=== PATIENT | female | born 1945 ===

== ENCOUNTER 2017-03-15 14:38 | Observation (INO) | payer MEDICARE, MEDICAID ==
[2017-03-15 15:22] LABS: BASO # 0.1 K/uL (0.0-0.2); BASO % 0.6 % (0.0-2.0); EOS # 0.1 K/uL (0.0-0.7); EOS % 1.1 % (0.0-4.0); HEMATOCRIT 43.6 % (34.0-47.0); LYMPH # 3.2 K/uL (1.0-4.3); LYMPH % 23.7 % (20.0-40.0); MEAN CELL VOLUME 77.6 fl (81.0-99.0); MEAN CORPUSCULAR HEMOGLOBIN 25.3 pg (27.0-31.0); MEAN CORPUSCULAR HGB CONC 32.6 g/dL (33.0-37.0); MEAN PLATELET VOLUME 7.8 fl (7.2-11.7); MONO # 0.9 K/uL (0.0-0.8); MONO % 6.6 % (0.0-10.0); NEUT # 9.1 K/uL (1.8-7.0); RED CELL DISTRIBUTION WIDTH 18.6 % (11.5-14.5); WHITE BLOOD COUNT 13.4 K/uL (4.8-10.8)
[2017-03-15 15:33] LABS: BLOOD UREA NITROGEN 25 mg/dl (7-17); CALCIUM 9.5 mg/dL (8.4-10.2); CARBON DIOXIDE 26 mmol/L (22-30); CHLORIDE 101 mmol/L (98-107); GFR AFRICAN-AMERICAN > 60; GLUCOSE,RANDOM 183 mg/dL (65-105); POTASSIUM 3.5 MMOL/L (3.6-5.0); SODIUM 139 mmol/l (132-148)
[2017-03-15 15:35] LABS: PARTIAL THROMBOPLASTIN TIME 24.1 Seconds (25.6-37.1)
--- NOTE | 2017-03-15 15:52 | ED PDOC ---
Syncope/Near Syncope/Dizziness Time Seen by Provider: 03/15/17 14:57 Chief Complaint (Nursing): Syncope Chief Complaint (Provider): Syncope History Per: Patient History/Exam Limitations: no limitations Additional Complaint(s): 71 y/o female with a past medical history of a-fib, compliance with medications , who presents to the emergency department after syncope epiode prior to arrival. Associated with dizziness. Family thought patient was undergoing cardiac arrest and did about 30 chest compressions until she woke up. Patient reports she started to have lower chest pain after the compressions but denies chest pain prior to passing out. Denies any further medical complaints. PMD: Dr. Rashid Capellan MD Scientific Diver: Dr. Michel LORENZO Past Medical History Reviewed: Historical Data, Nursing Documentation, Vital Signs Vital Signs: Last Vital Signs Temp 98.4 F 03/15/17 14:42 Pulse 53 L 03/15/17 14:42 Resp 16 03/15/17 14:42 BP 131/72 03/15/17 14:42 Pulse Ox 95 03/15/17 14:42 - Medical History PMH: Arthritis, Asthma, Atrial Fibrillation, Diabetes, HTN Denies: CHF, COPD, Hypercholesterolemia, Seizures - Surgical History Surgical History: Denies: CABG, Pacemaker - Family History Family History: Denies: CAD - Home Medications Home Medications: Ambulatory Orders Medication Instructions Recorded Meclizine [Meclizine*] 25 mg PO DAILY PRN 03/15/17 Gabapentin [Neurontin] 300 mg PO BID #60 03/16/17 Insulin Aspart Prot/Insuln Asp 15 unit SC DIN #1 vial 03/16/17 [Novolog Mix 70-30 Vial] Insulin Aspart Prot/Insuln Asp 18 unit SC BRK #1 vial 03/16/17 [Novolog Mix 70-30 Vial] Levothyroxine Sodium [Levothroid] 150 mcg PO DAILY #30 tab 03/16/17 Losartan [Cozaar] 100 mg PO DAILY #30 tab 03/16/17 Metformin HCl [Metformin HCl ER] 1,000 mg PO BID #60 tab 03/16/17 cloNIDine [Catapres] 0.1 mg PO DAILY #30 tab 03/16/17 traMADol [Ultram] 50 mg PO BID PRN #20 tab 03/16/17 - Allergies Allergies/Adverse Reactions: Allergies Allergy/AdvReac Type Severity Reaction Status Date / Time iodine Allergy SHORTNESS Verified 03/22/16 07:22 OF BREATH Sulfa (Sulfonamide Allergy RASH Verified 03/22/16 07:25 Antibiotics) Review of Systems ROS Statement: Except As Marked, All Systems Reviewed And Found Negative Cardiovascular: Positive for: Chest Pain (Lower region after compressions) Neurological: Positive for: Dizziness, Other (Syncope) Physical Exam - Reviewed Nursing Documentation Reviewed: Yes Vital Signs Reviewed: Yes - Physical Exam Appears: Positive for: Non-toxic, No Acute Distress Head Exam: Positive for: ATRAUMATIC, NORMAL INSPECTION, NORMOCEPHALIC Skin: Positive for: Normal Color, Warm, Dry Neck: Positive for: Normal, Supple Cardiovascular/Chest: Positive for: Chest Non Tender (Lower chest wall tenderness), Bradycardia, Irregularly Irregular. Negative for: Regular Rate, Rhythm, Murmur Respiratory: Positive for: Normal Breath Sounds. Negative for: Accessory Muscle Use, Respiratory Distress Gastrointestinal/Abdominal: Positive for: Normal Exam, Soft. Negative for: Tenderness Extremity: Positive for: Normal ROM. Negative for: Pedal Edema, Calf Tenderness Neurologic/Psych: Positive for: Alert, Oriented (x3) - Laboratory Results Result Diagrams: 03/16/17 05:50 03/16/17 05:50 - ECG ECG: Positive for: Interpreted By Me, Viewed By Me ECG Rhythm: Positive for: Normal ST Segment, Atrial Fibrillation. Negative for : ST/T Changes Rate: 42 O2 Sat by Pulse Oximetry: 95 (RA) Pulse Ox Interpretation: Normal - Radiology X-Ray: Interpreted by Me, Viewed By Me, Read By Radiologist X-Ray Interpretation: No Acute Disease Medical Decision Making Medical Decision Making: Time: 15:06 Initial impression: Syncope Initial plan: --EKG --B-Type Natriuretic --BMP --Digoxin --Troponin --CBC w/ diff --PTT & Prothrombin --Urine DIP --Chest One View x-ray --Remember Time: 16:14 --Admit to hospital routine: Observation in Telemetry for Syncope under the care of Dr. Jose LORENZO Time: 16:14 --Call Cardiology Consult Time: 16:23 --Cardiology Consult Routine: For Syncope AFib. Discussed with Dr. Joby Pearson MD Time: 16:24 --Chest x-ray FINDINGS: LUNGS: Poor inspiration with low lung volumes, crowded bronchovascular markings and mild bibasilar atelectasis. PLEURA: No pneumothorax or pleural fluid seen. CARDIOVASCULAR: Heart remains enlarged. OSSEOUS STRUCTURES: Mild degenerative changes both acromioclavicular joints. VISUALIZED UPPER ABDOMEN: Normal. OTHER FINDINGS: None. IMPRESSION: Poor inspiration with low lung volumes, crowded bronchovascular markings and mild bibasilar atelectasis. Cardiomegaly. Scribe Attestation: Documented by Jennifer Fsoter, acting as a scribe for Shona Reyes MD. Provider Scribe Attestation: All medical record entries made by the Scribe were at my direction and personally dictated by me. I have reviewed the chart and agree that the record accurately reflects my personal performance of the history, physical exam, medical decision making, and the department course for this patient. I have also personally directed, reviewed, and agree with the discharge instructions and disposition. Disposition - Clinical Impression Clinical Impression: Syncope and collapse - Patient ED Disposition Is Patient to be Admitted: Yes Discussed With : Isidro Garcia Doctor Will See Patient In The: ED Counseled Patient/Family Regarding: Studies Performed, Diagnosis - Disposition Disposition Time: 16:14 Condition: FAIR - Pt Status Changed To: Hospital Disposition Of: Observation - POA Present On Arrival: None
--- NOTE | 2017-03-15 16:25 | RAD ---
PROCEDURE: CHEST RADIOGRAPH, 1 VIEW HISTORY: syncope COMPARISON: Comparison chest dated 12/25 FINDINGS: LUNGS: Poor inspiration with low lung volumes, crowded bronchovascular markings and mild bibasilar atelectasis. PLEURA: No pneumothorax or pleural fluid seen. CARDIOVASCULAR: Heart remains enlarged. OSSEOUS STRUCTURES: Mild degenerative changes both acromioclavicular joints. VISUALIZED UPPER ABDOMEN: Normal. OTHER FINDINGS: None. IMPRESSION: Poor inspiration with low lung volumes, crowded bronchovascular markings and mild bibasilar atelectasis. Cardiomegaly.
--- NOTE | 2017-03-15 17:38 | CP.PCM.HP ---
History of Present Illness - History of Present Illness History of Present Illness: 71 yo female with history of AFib, HTN, DM2, MONY and Hypothyroidism suddenly passed out while reading magazine. Her daughter who witnessed the episode thinking she might be having a cardiac arrest started CPR without checking her pulse. Patient was able to regained consciousness in less than 5 minutes. She admitted feeling dizzy the past few days and admitted her BP was unusually low. She denied SOB or chest pain shortly prior to syncope but now admitted soreness on the chest because of the CPR. Present on Admission - Present on Admission Any Indicators Present on Admission: No History of DVT/PE: No History of Uncontrolled Diabetes: No Urinary Catheter: No Decubitus Ulcer Present: No Review of Systems - Review of Systems All systems: reviewed and no additional remarkable complaints except (aside from those mentioned above, 12 point system review were negative by me) Past Patient History - Infectious Disease Hx of Infectious Diseases: None - Tetanus Immunizations Tetanus Immunization: Unknown - Past Medical History & Family History Past Medical History?: Yes Past Family History: Reviewed and not pertinent - Past Social History Smoking Status: Never Smoked Alcohol: None Drugs: Denies Home Situation {Lives}: With Family - CARDIAC Hx Atrial Fibrillation: Yes Hx Congestive Heart Failure: No Hx Hypercholesterolemia: No Hx Hypertension: Yes Hx Pacemaker: No - PULMONARY Hx Asthma: Yes Hx Chronic Obstructive Pulmonary Disease (COPD): No Hx Sleep Apnea: Yes - NEUROLOGICAL Hx Neurological Disorder: No Hx Seizures: No - HEENT Hx HEENT Problems: No - RENAL Hx Chronic Kidney Disease: No - ENDOCRINE/METABOLIC Hx Diabetes Mellitus Type 2: Yes Hx Hypothyroidism: Yes - HEMATOLOGICAL/ONCOLOGICAL Hx Blood Disorders: No - INTEGUMENTARY Hx Dermatological Problems: No - MUSCULOSKELETAL/RHEUMATOLOGICAL Hx Arthritis: Yes - GASTROINTESTINAL Hx Gastrointestinal Disorders: No - GENITOURINARY/GYNECOLOGICAL Hx Genitourinary Disorders: No - PSYCHIATRIC Hx Psychophysiologic Disorder: No Hx Substance Use: No - SURGICAL HISTORY Hx Surgeries: Yes Hx Section: Yes Hx Coronary Artery Bypass Graft: No - ANESTHESIA Hx Anesthesia: Yes Hx Anesthesia Reactions: No Meds Allergies/Adverse Reactions: Allergies Allergy/AdvReac Type Severity Reaction Status Date / Time iodine Allergy SHORTNESS Verified 03/22/16 07:22 OF BREATH Sulfa (Sulfonamide Allergy RASH Verified 03/22/16 07:25 Antibiotics) Physical Exam - Constitutional Appears: No Acute Distress - Head Exam Head Exam: ATRAUMATIC - Eye Exam Eye Exam: absent: Scleral icterus - ENT Exam ENT Exam: Mucous Membranes Moist - Neck Exam Neck exam: Negative for: Meningismus - Respiratory Exam Respiratory Exam: Chest Wall Tenderness (midline chest wall tenderness on palpation) - Cardiovascular Exam Cardiovascular Exam: Bradycardia, Irregular Rhythm - GI/Abdominal Exam GI & Abdominal Exam: Soft. absent: Tenderness - Rectal Exam Rectal Exam: Deferred - Extremities Exam Extremities exam: Negative for: pedal edema - Neurological Exam Neurological exam: Alert, Oriented x3 - Psychiatric Exam Psychiatric exam: Normal Affect - Skin Skin Exam: Dry, Intact Results - Vital Signs Recent Vital Signs: Last Vital Signs Temp 98.4 F 03/15/17 14:42 Pulse 53 L 03/15/17 14:42 Resp 16 03/15/17 14:42 BP 131/72 03/15/17 14:42 Pulse Ox 95 03/15/17 16:58 - Labs Result Diagrams: 03/15/17 15:10 03/15/17 15:10 Assessment & Plan (1) Syncope Status: Acute Comment: place on observation in telemetry. serial Troponin. probably secondary to hypotension and bradycardia. hold Digoxin, observe parameters on Metoprolol. cardiology consult with Dr Pearson. ECHO (2) Afib Status: Chronic Comment: on Digoxin, Metoprolol. will hold Digoxin. Dr Pearson on consult. pt not on any anti-coagulant (3) HTN (hypertension) Status: Chronic Comment: BP slightly elevated. continue Losartan/HCTZ and Metoprolol. hold for low BP (4) DM2 (diabetes mellitus, type 2) Status: Chronic Comment: BS controlled. continue Novolog 70/30 18 units SC before breakfast and 15 units SC before dinner. accuchek ACHS. HgA1C, BMP in am (5) Hypothyroid Status: Chronic Comment: Levothyroxine 137mcg PO daily. TSH in am (6) MONY (obstructive sleep apnea) Status: Chronic Comment: BIPAP at bedtime (7) DVT prophylaxis Status: Acute Comment: Lovenox 40mg SC daily
[2017-03-15] MEDS ORDERED: Potassium Chloride 20 mEq ER Tab PO ONE (17:44)
[2017-03-16 06:56] LABS: BLOOD UREA NITROGEN 18 mg/dl (7-17); CALCIUM 9.3 mg/dL (8.4-10.2); CARBON DIOXIDE 27 mmol/L (22-30); CHLORIDE 101 mmol/L (98-107); GFR AFRICAN-AMERICAN > 60; GLUCOSE,RANDOM 171 mg/dL (65-105); POTASSIUM 3.4 MMOL/L (3.6-5.0); SODIUM 138 mmol/l (132-148)
[2017-03-16 07:10] LABS: BASO # 0.1 K/uL (0.0-0.2); BASO % 0.6 % (0.0-2.0); EOS # 0.1 K/uL (0.0-0.7); EOS % 1.5 % (0.0-4.0); HEMATOCRIT 41.7 % (34.0-47.0); LYMPH # 2.3 K/uL (1.0-4.3); MEAN CELL VOLUME 78.2 fl (81.0-99.0); MEAN CORPUSCULAR HEMOGLOBIN 25.4 pg (27.0-31.0); MEAN CORPUSCULAR HGB CONC 32.5 g/dL (33.0-37.0); MEAN PLATELET VOLUME 7.9 fl (7.2-11.7); MONO # 0.6 K/uL (0.0-0.8); MONO % 6.8 % (0.0-10.0); NEUT # 6.4 K/uL (1.8-7.0); NEUT % 67.1 % (50.0-75.0); NRBC % 0.2 % (0.0-0.0); RED CELL DISTRIBUTION WIDTH 18.5 % (11.5-14.5); WHITE BLOOD COUNT 9.5 K/uL (4.8-10.8)
[2017-03-16] MEDS ORDERED: Insulin Lispro Mix 75/25 100 units/ml (HumaLog) 10ml SC SCH ×2 (08:00→17:00)
[2017-03-16] MEDS ORDERED: Enoxaparin 40 mg Syringe SC SCH (09:00)
[2017-03-16] MEDS ORDERED: Digoxin 250 mcg (0.25 mg) Tab PO SCH (09:00)
[2017-03-16] MEDS ORDERED: HYDROCHLOROTHIAZIDE PO SCH (09:00)
[2017-03-16] MEDS ORDERED: LOSARTAN PO SCH (09:00)
--- NOTE | 2017-03-16 09:14 | CARD ---
APPROVED REPORT EKG Measurement Heart [id number] <Conclusion> Atrial fibrillation with slow ventricular response Abnormal ECG
[2017-03-16 09:19] VITALS: PULSE 71
[2017-03-16] MEDS ORDERED: Levothyroxine 150 MCG TAB PO SCH (10:21)
--- NOTE | 2017-03-16 11:03 | CP.PCM.DIS ---
Provider - Provider Date of Admission: 03/15/17 16:14 Attending physician: Isidro Garcia MD Time Spent in preparation of Discharge (in minutes): 30 Diagnosis - Discharge Diagnosis (1) Syncope Status: Acute (2) Afib Status: Chronic (3) HTN (hypertension) Status: Chronic Hospital Course - Lab Results Lab Results: Most Recent Lab Values WBC 9.5 K/uL (4.8-10.8) 03/16/17 05:50 RBC 5.33 Mil/uL (3.80-5.20) H 03/16/17 05:50 Hgb 13.5 g/dL (12.0-16.0) 03/16/17 05:50 Hct 41.7 % (34.0-47.0) 03/16/17 05:50 MCV 78.2 fl (81.0-99.0) L 03/16/17 05:50 MCH 25.4 pg (27.0-31.0) L 03/16/17 05:50 MCHC 32.5 g/dL (33.0-37.0) L 03/16/17 05:50 RDW 18.5 % (11.5-14.5) H 03/16/17 05:50 Plt Count 260 K/uL (130-400) 03/16/17 05:50 MPV 7.9 fl (7.2-11.7) 03/16/17 05:50 Neut % (Auto) 67.1 % (50.0-75.0) 03/16/17 05:50 Lymph % (Auto) 24.0 % (20.0-40.0) 03/16/17 05:50 [place] % (Auto) 6.8 % (0.0-10.0) 03/16/17 05:50 Eos % (Auto) 1.5 % (0.0-4.0) 03/16/17 05:50 Baso % (Auto) 0.6 % (0.0-2.0) 03/16/17 05:50 Neut # 6.4 K/uL (1.8-7.0) 03/16/17 05:50 Lymph # 2.3 K/uL (1.0-4.3) 03/16/17 05:50 [place] # 0.6 K/uL (0.0-0.8) 03/16/17 05:50 Eos # 0.1 K/uL (0.0-0.7) 03/16/17 05:50 Baso # 0.1 K/uL (0.0-0.2) 03/16/17 05:50 PT 11.7 Seconds (9.8-13.1) 03/15/17 15:10 INR 1.1 (0.9-1.2) 03/15/17 15:10 APTT 24.1 Seconds (25.6-37.1) L 03/15/17 15:10 Sodium 138 mmol/l (132-148) 03/16/17 05:50 Potassium 3.4 MMOL/L (3.6-5.0) L 03/16/17 05:50 Chloride 101 mmol/L (98-107) 03/16/17 05:50 Carbon Dioxide 27 mmol/L (22-30) 03/16/17 05:50 Anion Gap 13 (10-20) 03/16/17 05:50 BUN 18 mg/dl (7-17) H 03/16/17 05:50 Creatinine 0.8 mg/dL (0.7-1.2) 03/16/17 05:50 Est GFR ( Amer) > 60 03/16/17 05:50 Est GFR (Non-Af Amer) > 60 03/16/17 05:50 POC Glucose (mg/dL) 168 mg/dL (65-110) H 03/16/17 05:19 Random Glucose 171 mg/dL (65-105) H 03/16/17 05:50 Calcium 9.3 mg/dL (8.4-10.2) 03/16/17 05:50 Troponin I < 0.0120 ng/mL (0.00-0.120) 03/16/17 05:50 NT-Pro-B Natriuret Pep 929 pg/ml (0-900) H 03/15/17 15:10 Free T4 1.32 ng/dL (0.78-2.19) 03/16/17 08:32 TSH 3rd Generation 11.00 mIU/ML (0.46-4.68) H 03/16/17 05:50 Digoxin 1.0 ng/mL (0.8-2.0) 03/15/17 15:10 - Hospital Course Hospital Course: 71 yo female with history of AFib, HTN, DM2, MONY and Hypothyroidism suddenly passed out while reading magazine. Her daughter who witnessed the episode thinking she might be having a cardiac arrest started CPR without checking her pulse. Patient was able to regained consciousness in less than 5 minutes. She admitted feeling dizzy the past few days and admitted her BP was unusually low. She denied SOB or chest pain shortly prior to syncope but now admitted soreness on the chest because of the CPR. Patient was monitored on Tele overnight. Clinically improved. TSH elevated at 11.00, increased Levothyroxine to 150mcg. HOLD LOPRESSOR AND DIGOXIN. CONTINUE COZAAR AND CLONIDINE. Discussed in detail with Dr. Pearson, adjustments made as above. 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 Stable for dc home. (1) Syncope Status: Acute Comment: place on observation in telemetry. serial Troponin. probably secondary to hypotension and bradycardia. hold Digoxin AND Lopressor Cardiology Consult Dr. Pearson (2) Afib on Digoxin, Metoprolol. will hold Digoxin AND Lopressor. Dr Pearson on consult , discussed this AM, HOLD dig and lopressor (3) HTN (hypertension) CONTINUE COZAAR AND CLONIDINE (4) DM2 (diabetes mellitus, type 2) Status: Chronic Comment: BS controlled. continue Novolog 70/30 18 units SC before breakfast and 15 units SC before dinner. accuchek ACHS. HgA1C, BMP in am (5) Hypothyroid TSH 11.0 Levothyroxine 137mcg PO daily INCREASED TO 150MCG ENDOCRINOLOGY FOLLOW UP (6) MONY (obstructive sleep apnea) Status: Chronic Comment: BIPAP at bedtime (7) DVT prophylaxis Status: Acute Comment: Lovenox 40mg SC daily Discharge Exam - Head Exam Head Exam: ATRAUMATIC, NORMOCEPHALIC - Eye Exam Eye Exam: EOMI, Normal appearance, PERRL Pupil Exam: NORMAL ACCOMODATION - ENT Exam ENT Exam: Mucous Membranes Moist, Normal Oropharynx - Respiratory Exam Respiratory Exam: Clear to PA & Lateral, NORMAL BREATHING PATTERN - Cardiovascular Exam Cardiovascular Exam: RRR, +S1, +S2 - GI/Abdominal Exam GI & Abdominal Exam: Normal Bowel Sounds, Soft. absent: Mass, Organomegaly, Tenderness - Extremities Exam Extremities exam: normal capillary refill, pedal pulses present - Back Exam Back exam: absent: CVA tenderness (L), CVA tenderness (R) - Neurological Exam Neurological exam: Alert, Normal Gait, Oriented x3 - Psychiatric Exam Psychiatric exam: Normal Affect, Normal Mood - Skin Skin Exam: Dry, Warm Discharge Plan - Discharge Medications Prescriptions: cloNIDine [Catapres] 0.1 mg PO DAILY #30 tab Gabapentin [Neurontin] 300 mg PO BID #60 Insulin Aspart Prot/Insuln Asp [Novolog Mix 70-30 Vial] 18 unit SC BRK #1 vial Insulin Aspart Prot/Insuln Asp [Novolog Mix 70-30 Vial] 15 unit SC DIN #1 vial Levothyroxine Sodium [Levothroid] 150 mcg PO DAILY #30 tab Losartan [Cozaar] 100 mg PO DAILY #30 tab Metformin HCl [Metformin HCl ER] 1,000 mg PO BID #60 tab traMADol [Ultram] 50 mg PO BID PRN #20 tab PRN Reason: Pain, Moderate (4-7) - Follow Up Plan Condition: STABLE Disposition: HOME/ ROUTINE Additional Instructions: HOLD LOPRESSOR AND DIGOXIN. CONTINUE COZAAR AND CLONIDINE. 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 Stable for dc home. Referrals: Joby Pearson MD [Staff Provider] -
--- NOTE | 2017-03-16 11:42 | CP.PCM.CON ---
History of Present Illness - History of Present Illness History of Present Illness: 71 yo female admitted with syncopal episode most likely due to bradycardia from hypothyroidism. Pt previously being treated for hyperthyroidism currently on Synthroid. Denies chest pain or shortness of breath. Past Patient History - Infectious Disease Hx of Infectious Diseases: None - Tetanus Immunizations Tetanus Immunization: Unknown - Past Medical History & Family History Past Medical History?: Yes - Past Social History Smoking Status: Never Smoked - CARDIAC Hx Atrial Fibrillation: Yes Hx Congestive Heart Failure: No Hx Hypercholesterolemia: No Hx Hypertension: Yes Hx Pacemaker: No - PULMONARY Hx Asthma: Yes Hx Chronic Obstructive Pulmonary Disease (COPD): No Hx Sleep Apnea: Yes - NEUROLOGICAL Hx Neurological Disorder: No Hx Seizures: No - HEENT Hx HEENT Problems: No - RENAL Hx Chronic Kidney Disease: No - ENDOCRINE/METABOLIC Hx Diabetes Mellitus Type 2: Yes Hx Hypothyroidism: Yes - HEMATOLOGICAL/ONCOLOGICAL Hx Blood Disorders: No Hx AIDS: No Hx Human Immunodeficiency Virus (HIV): No - INTEGUMENTARY Hx Dermatological Problems: No - MUSCULOSKELETAL/RHEUMATOLOGICAL Hx Arthritis: Yes Hx Falls: No - GASTROINTESTINAL Hx Gastrointestinal Disorders: No - GENITOURINARY/GYNECOLOGICAL Hx Genitourinary Disorders: No - PSYCHIATRIC Hx Psychophysiologic Disorder: No Hx Substance Use: No - SURGICAL HISTORY Hx Surgeries: Yes Hx Section: Yes Hx Coronary Artery Bypass Graft: No - ANESTHESIA Hx Anesthesia: Yes Hx Anesthesia Reactions: No Hx Malignant Hyperthermia: No Has any member of the family had a problem w/ anesthesia?: No Meds Home Medications: Home Medication List Medication Instructions Recorded Confirmed Type Gabapentin [Neurontin] 300 mg PO BID #60 03/16/17 Rx Insulin Aspart Prot/Insuln Asp 15 unit SC DIN #1 vial 03/16/17 Rx [Novolog Mix 70-30 Vial] Insulin Aspart Prot/Insuln Asp 18 unit SC BRK #1 vial 03/16/17 Rx [Novolog Mix 70-30 Vial] Levothyroxine Sodium [Levothroid] 150 mcg PO DAILY #30 tab 03/16/17 Rx Losartan [Cozaar] 100 mg PO DAILY #30 tab 03/16/17 Rx Metformin HCl [Metformin HCl ER] 1,000 mg PO BID #60 tab 03/16/17 Rx cloNIDine [Catapres] 0.1 mg PO DAILY #30 tab 03/16/17 Rx traMADol [Ultram] 50 mg PO BID PRN #20 tab 03/16/17 Rx Allergies/Adverse Reactions: Allergies Allergy/AdvReac Type Severity Reaction Status Date / Time iodine Allergy SHORTNESS Verified 03/22/16 07:22 OF BREATH Sulfa (Sulfonamide Allergy RASH Verified 03/22/16 07:25 Antibiotics) - Medications Medications: Current Medications Clonidine HCl (Catapres) 0.1 mg PO DAILY [facility] Last Admin: 03/16/17 09:37 Dose: 0.1 mg Docusate Sodium (Colace) 100 mg PO BID PRN PRN Reason: Constipation Enoxaparin Sodium (Lovenox) 40 mg SC DAILY [facility] PRN Reason: Protocol Last Admin: 03/16/17 09:18 Dose: 40 mg Famotidine (Pepcid) 20 mg PO BID [facility] Last Admin: 03/16/17 09:18 Dose: 20 mg Gabapentin (Neurontin) 300 mg PO BID [facility] Last Admin: 03/16/17 09:19 Dose: 300 mg Insulin Lispro Protam/Lispro Human (Humalog Mix 75/25) 15 units SC DIN [facility] Insulin Lispro Protam/Lispro Human (Humalog Mix 75/25) 18 units SC BRK [facility] Last Admin: 03/16/17 09:16 Dose: 18 units Levothyroxine Sodium (Synthroid) 150 mcg PO 0630 [facility] Last Admin: 03/16/17 10:36 Dose: Not Given Losartan Potassium (Cozaar) 100 mg PO DAILY [facility] Last Admin: 03/16/17 09:16 Dose: 100 mg Metformin HCl (Glucophage) 1,000 mg PO BID [facility] Last Admin: 03/16/17 09:16 Dose: 1,000 mg Tramadol HCl (Ultram) 50 mg PO BID PRN PRN Reason: Pain, moderate (4-7) Last Admin: 03/15/17 22:49 Dose: 50 mg Physical Exam - Constitutional Appears: Well - Neck Exam Neck exam: Positive for: Normal Inspection - Respiratory Exam Respiratory Exam: Clear to Auscultation Bilateral - Cardiovascular Exam Cardiovascular Exam: Irregular Rhythm - Extremities Exam Extremities exam: Positive for: normal inspection Results - Vital Signs Recent Vital Signs: Last Vital Signs Temp 98.3 F 03/16/17 05:19 Pulse 71 03/16/17 09:37 Resp 18 03/16/17 05:19 BP 141/80 03/16/17 09:37 Pulse Ox 96 03/16/17 05:19 - Labs Result Diagrams: 03/16/17 05:50 03/16/17 05:50 Labs: Laboratory Results - last 24 hr 03/15/17 03/15/17 03/16/17 17:35 22:37 05:19 WBC RBC Hgb Hct MCV MCH MCHC RDW Plt Count MPV Neut % (Auto) Lymph % (Auto) [place] % (Auto) Eos % (Auto) Baso % (Auto) Neut # Lymph # [place] # Eos # Baso # Sodium Potassium Chloride Carbon Dioxide Anion Gap BUN Creatinine Est GFR ( Amer) Est GFR (Non-Af Amer) POC Glucose (mg/dL) 127 H 163 H 168 H Random Glucose Calcium Troponin I Free T4 TSH 3rd Generation 03/16/17 03/16/17 03/16/17 05:50 05:50 05:50 WBC 9.5 RBC 5.33 H Hgb 13.5 Hct 41.7 MCV 78.2 L MCH 25.4 L MCHC 32.5 L RDW 18.5 H Plt Count 260 MPV 7.9 Neut % (Auto) 67.1 Lymph % (Auto) 24.0 [place] % (Auto) 6.8 Eos % (Auto) 1.5 Baso % (Auto) 0.6 Neut # 6.4 Lymph # 2.3 [place] # 0.6 Eos # 0.1 Baso # 0.1 Sodium 138 Potassium 3.4 L Chloride 101 Carbon Dioxide 27 Anion Gap 13 BUN 18 H Creatinine 0.8 Est GFR ( Amer) > 60 Est GFR (Non-Af Amer) > 60 POC Glucose (mg/dL) Random Glucose 171 H Calcium 9.3 Troponin I < 0.0120 Free T4 TSH 3rd Generation 11.00 H 03/16/17 03/16/17 08:32 11:06 WBC RBC Hgb Hct MCV MCH MCHC RDW Plt Count MPV Neut % (Auto) Lymph % (Auto) [place] % (Auto) Eos % (Auto) Baso % (Auto) Neut # Lymph # [place] # Eos # Baso # Sodium Potassium Chloride Carbon Dioxide Anion Gap BUN Creatinine Est GFR ( Amer) Est GFR (Non-Af Amer) POC Glucose (mg/dL) 194 H Random Glucose Calcium Troponin I Free T4 1.32 TSH 3rd Generation Assessment & Plan - Assessment and Plan (Free Text) Assessment: 71 yo female past medical history chronic afib, hypertension, hypothyroidism , DM2 on insulin with syncopal episode most likely due to bradycardia in setting of hypothyroidism Synthroid increased Digoxin and Beta Iram Held F/u as outpt on Sunday Endocrinology f/u as out pt Can be dcd home HR and BP are stable Resume NOAC
[2017-03-16 12:10] VITALS: BP 171/77; RESP 20; TEMP 98.8
[2017-03-16 15:57] VITALS: O2SAT 95
[2017-03-16 15:58] VITALS: PULSE 42
== END 2017-03-16 12:20 | disposition home or self-care (01) ==
LOC: H.ER 14:38 → H.ERHOLD 16:14 → H.TEL 18:24
DX: I95.9 Hypotension, unspecified (principal); R55 Syncope and collapse; E03.9 Hypothyroidism, unspecified; E05.90 Thyrotoxicosis, unspecified without thyrotoxic crisis or storm; E11.9 Type 2 diabetes mellitus without complications; G47.33 Obstructive sleep apnea (adult) (pediatric); I11.9 Hypertensive heart disease without heart failure; I48.2 Chronic atrial fibrillation; Z79.4 Long term (current) use of insulin; J45.909 Unspecified asthma, uncomplicated; J98.11 Atelectasis; Z79.899 Other long term (current) drug therapy; M19.90 Unspecified osteoarthritis, unspecified site; R07.89 Other chest pain; R00.1 Bradycardia, unspecified; R42 Dizziness and giddiness; R94.6 Abnormal results of thyroid function studies
CPT/HCPCS: 36415; 71010; 80048; 80162; 82948; 83036; 83880; 84439; 84443; 84481; 84484; 85025; 85610; 85730; 93005; 97161; 99285; G0378; G8978; G8979; J1650

== ENCOUNTER 2018-08-04 11:55 | Observation (INO) | payer MEDICARE, MEDICAID ==
[2018-08-04 11:55] VITALS: PULSE 71
[2018-08-04] MEDS ORDERED: Sodium Chloride 0.9% 500 ML IV STA (12:13)
--- NOTE | 2018-08-04 12:18 | ED PDOC ---
HPI: General Adult Time Seen by Provider: 08/04/18 12:04 Chief Complaint (Provider): Syncope History Per: Patient Additional History Per: Patient, EMS, Family Additional Complaint(s): Pt. feeling weak all over and headache mild diffuse yesterday. Her bp was in 200 systolic yesterday. Today she continued to have the symptoms and went the [employer] and got light-headed. Then she had a syncope episode. Unclear how long it lasted. She was sitting and did not hit her head. Had chest pain and palpitations today and is gone now. No dyspnea. No numbness, tingles. Has nausea, gone now. Past Medical History Reviewed: Nursing Documentation, Vital Signs Vital Signs: Last Vital Signs Temp 98.3 F 08/04/18 12:02 Pulse 61 08/04/18 12:02 Resp 20 08/04/18 12:02 BP 147/90 08/04/18 12:02 Pulse Ox 96 08/04/18 12:02 - Medical History PMH: Arthritis, Asthma, Atrial Fibrillation, Diabetes, HTN, Hypothyroidism, Sleep Apnea Denies: CHF, COPD, HIV, Hypercholesterolemia, Chronic Kidney Disease, Seizures - Surgical History Surgical History: Denies: CABG, Pacemaker - Family History Family History: Denies: CAD - Home Medications Home Medications: Ambulatory Orders Medication Instructions Recorded Meclizine [Meclizine*] 25 mg PO DAILY PRN 03/15/17 Gabapentin [Neurontin] 300 mg PO BID #60 03/16/17 Insulin Aspart Prot/Insuln Asp 15 unit SC DIN #1 vial 03/16/17 [Novolog Mix 70-30 Vial] Insulin Aspart Prot/Insuln Asp 18 unit SC BRK #1 vial 03/16/17 [Novolog Mix 70-30 Vial] Levothyroxine Sodium [Levothroid] 150 mcg PO DAILY #30 tab 03/16/17 Losartan [Cozaar] 100 mg PO DAILY #30 tab 03/16/17 Metformin HCl [Metformin ER 1,000 mg PO BID #60 tab 03/16/17 Osmotic] cloNIDine [Catapres] 0.1 mg PO DAILY #30 tab 03/16/17 traMADol [Ultram] 50 mg PO BID PRN #20 tab 03/16/17 - Allergies Allergies/Adverse Reactions: Allergies Allergy/AdvReac Type Severity Reaction Status Date / Time iodine Allergy SHORTNESS Verified 03/22/16 07:22 OF BREATH Sulfa (Sulfonamide Allergy RASH Verified 03/22/16 07:25 Antibiotics) Review of Systems ROS Statement: Except As Marked, All Systems Reviewed And Found Negative Constitutional: Positive for: Weakness Cardiovascular: Positive for: Chest Pain, Palpitations Gastrointestinal: Positive for: Nausea Neurological: Positive for: Weakness, Headache, Dizziness Physical Exam - Reviewed Nursing Documentation Reviewed: Yes Vital Signs Reviewed: Yes - Physical Exam Appears: Positive for: Non-toxic, No Acute Distress Head Exam: Positive for: ATRAUMATIC, NORMAL INSPECTION, NORMOCEPHALIC Skin: Positive for: Normal Color, Warm, DRY Eye Exam: Positive for: EOMI, Normal appearance, PERRL ENT: Positive for: Normal ENT Inspection Neck: Positive for: Normal, Painless ROM, Supple Cardiovascular/Chest: Positive for: Regular Rate, Rhythm Respiratory: Positive for: CNT, Normal Breath Sounds Gastrointestinal/Abdominal: Positive for: Normal Exam, Soft. Negative for: Tenderness Back: Positive for: Normal Inspection. Negative for: L CVA Tenderness, R CVA Tenderness Extremity: Positive for: Normal ROM. Negative for: Tenderness Neurologic/Psych: Positive for: Alert, clerk specialist II-XII, Oriented. Negative for: Motor/Sensory Deficits, Aphasia, Facial Droop - Laboratory Results Result Diagrams: 08/04/18 12:45 08/04/18 12:45 Lab Results: NO ACUTE - ECG ECG: Positive for: Interpreted By Me, Viewed By Md ECG Rhythm: Positive for: Atrial Fibrillation O2 Sat by Pulse Oximetry: 96 Pulse Ox Interpretation: Normal - Radiology X-Ray: Interpreted by Me, Viewed By Md X-Ray Interpretation: No Acute Disease - CT Scan/US ct Other Rad Studies (CT/US): Read By Radiologist Other Rad Interpretation: no acute - Progress ED Course And Treament: 1411: Stable. AAOx3. Pain free. Got ntg and asa in the field. 1423: Spoke with Dr. Villalobos. Will admit tele obs. Disposition - Clinical Impression Clinical Impression: Syncope, Chest pain - Patient ED Disposition Is Patient to be Admitted: Yes Counseled Patient/Family Regarding: Studies Performed, Diagnosis - Disposition Disposition Time: 14:24 Condition: FAIR - Pt Status Changed To: Hospital Disposition Of: Observation - POA Present On Arrival: None
--- NOTE | 2018-08-04 13:28 | CT ---
Date of service: 08/04/2018 PROCEDURE: CT HEAD WITHOUT CONTRAST. HISTORY: headache COMPARISON: None available. TECHNIQUE: Axial computed tomography images were obtained through the head/brain without intravenous contrast. Radiation dose: Total exam DLP = 851.87 mGy-cm. This CT exam was performed using one or more of the following dose reduction techniques: Automated exposure control, adjustment of the mA and/or kV according to patient size, and/or use of iterative reconstruction technique. FINDINGS: HEMORRHAGE: No intracranial hemorrhage. BRAIN: Good corticomedullary differentiation is seen. Proportional, diffuse but limited expansion of the ventriculosulcal and cisternal spaces is appreciated with white matter lucency compatible with diffuse cerebral atrophy and chronic microangiopathy. No suspicious extra-axial fluid collection is identified and the midline brain anatomy appears grossly nonfocal as imaged. There is no mass effect throughout. VENTRICLES: Unremarkable. No hydrocephalus. CALVARIUM: Unremarkable. PARANASAL SINUSES: Unremarkable as visualized. No significant inflammatory changes. MASTOID AIR CELLS: Unremarkable as visualized. No inflammatory changes. OTHER FINDINGS: None. IMPRESSION: Very limited age-related neuro degenerative findings without acute CT changes. Follow-up CT or MRI are available if clinically warranted.
[2018-08-04 13:31] LABS: ALB/GLOB RATIO 1.3 (1.0-2.1); ALBUMIN 3.9 g/dL (3.5-5.0); ALT/SGPT 28 U/L (9-52); AST/SGOT 27 U/L (14-36); BLOOD UREA NITROGEN 22 mg/dl (7-17); CALCIUM 9.5 mg/dL (8.4-10.2); GFR NON-AFRICAN AMERICAN > 60
[2018-08-04 13:52] LABS: BASO # 0.1 K/uL (0.0-0.2); BASO % 0.8 % (0.0-2.0); EOS # 0.2 K/uL (0.0-0.7); EOS % 2.1 % (0.0-4.0); HEMOGLOBIN 13.1 g/dL (12.0-16.0); LYMPH % 13.1 % (20.0-40.0); MEAN CORPUSCULAR HEMOGLOBIN 24.8 pg (27.0-31.0); MEAN CORPUSCULAR HGB CONC 31.8 g/dL (33.0-37.0); MEAN PLATELET VOLUME 8.2 fl (7.2-11.7); MONO # 0.5 K/uL (0.0-0.8); MONO % 6.9 % (0.0-10.0); NEUT # 6.1 K/uL (1.8-7.0); NEUT % 77.1 % (50.0-75.0); RBC 5.27 Mil/uL (3.80-5.20); RED CELL DISTRIBUTION WIDTH 18.3 % (11.5-14.5); WHITE BLOOD COUNT 7.9 K/uL (4.8-10.8)
[2018-08-04 14:26] LABS: INR 1.1; PROTHROMBIN TIME 12.6 Seconds (9.8-13.1)
[2018-08-04 14:29] LABS: PARTIAL THROMBOPLASTIN TIME 27.3 Seconds (25.6-37.1)
--- NOTE | 2018-08-04 15:15 | CP.PCM.HP ---
History of Present Illness - History of Present Illness History of Present Illness: 72 yr old F brought to ED by ambulance s/p syncopal episode which occurred at [employer]. PMHx includes Hypertension, Atrial fibrillation, IDDM type 2, Hypothyroidism, Asthma, Obstructive Sleep Apnea and arthritis. Patient states she was sitting at [employer] and had dull chest pain lasting a few seconds, located on the left parasternal area, then she fainted and her friend held her in place in her chair. Does not know how long the syncopal episode lasted. Had mild nausea and one episode of bilious vomiting when she gained consciousness. Denies confusion, urinary or fecal incontinence. Denies head trauma. She reports feeling overall malaise and elevated BP with systolic in the 200's for the past 2 days, associated symptoms include headache and dizziness at home yesterday. She tolerated breakfast this morning. Denies fever, chills, dysuria, SOB, one sided weakness, slurred speech, visual changes. Reports she has increased salty food intake in the last couple of days. Patient reports non adherence with Eliquis or BIPAP. PMD: Dr. Capellan Specialists: Dr. Membreno-consulting property manager; Dr. Pearson-tank insulator rubber PMHx: Hypertension, Atrial fibrillation, IDDM type 2, Hypothyroidism, Asthma, Obstructive Sleep Apnea and arthritis SurgHx: x 1, bilateral tubal ligation FMHx: mother at 55yr old from stomach cancer, father at 83 yrs from lung cancer SocHx: denies tobacco/Etoh or drugs. Lives alone, daughter lives nearby Medications: see med rec Allergies: iodine contrast and sulfa ER course: BP 147/90 mmHg, HR 61, Temp 98.3F, Resp 20, 96% O2 sat on room air -EKG: Atrial fibrillation at 67 bpm, no acute ST-T changes -CT head: No intracranial hemorrhage. Very limited age-related neuro degenerative findings without acute CT changes. -CBC, CMP and coags within normal limits -troponin negative x 1 Present on Admission - Present on Admission Any Indicators Present on Admission: No History of DVT/PE: No History of Uncontrolled Diabetes: Yes Urinary Catheter: No Decubitus Ulcer Present: No History Surgical Site Infection Following: None Review of Systems - Constitutional Constitutional: Malaise. absent: Weakness - EENT Eyes: absent: Change in Vision Nose/Mouth/Throat: absent: Nasal Congestion, Sore Throat - Cardiovascular Cardiovascular: Chest Pain, Syncope. absent: Dyspnea, Pain Radiating to Arm/Neck/Jaw, Leg Edema - Respiratory Respiratory: absent: Cough - Gastrointestinal Gastrointestinal: Nausea (in the morning today), Vomiting (1 episode today) - Genitourinary Genitourinary: absent: Difficulty Urinating, Dysuria - Musculoskeletal Musculoskeletal: absent: Numbness, Tingling - Neurological Neurological: absent: Confusion, Weakness - Psychiatric Psychiatric: absent: Anxiety, Depression - Hematologic/Lymphatic Hematologic: absent: Easy Bleeding, Easy Bruising Past Patient History - Infectious Disease Hx of Infectious Diseases: None - Tetanus Immunizations Tetanus Immunization: Unknown - Past Medical History & Family History Past Medical History?: Yes - Past Social History Smoking Status: Never Smoked - CARDIAC Hx Atrial Fibrillation: Yes Hx Congestive Heart Failure: No Hx Hypercholesterolemia: No Hx Hypertension: Yes Hx Pacemaker: No - PULMONARY Hx Asthma: Yes Hx Chronic Obstructive Pulmonary Disease (COPD): No Hx Sleep Apnea: Yes - NEUROLOGICAL Hx Seizures: No - HEENT Hx HEENT Problems: No - RENAL Hx Chronic Kidney Disease: No - ENDOCRINE/METABOLIC Hx Hypothyroidism: Yes - HEMATOLOGICAL/ONCOLOGICAL Hx Human Immunodeficiency Virus (HIV): No - INTEGUMENTARY Hx Dermatological Problems: No - MUSCULOSKELETAL/RHEUMATOLOGICAL Hx Arthritis: Yes - GASTROINTESTINAL Hx Gastrointestinal Disorders: No - GENITOURINARY/GYNECOLOGICAL Hx Genitourinary Disorders: No - PSYCHIATRIC Hx Psychophysiologic Disorder: No Hx Substance Use: No - SURGICAL HISTORY Hx Coronary Artery Bypass Graft: No - ANESTHESIA Hx Anesthesia: Yes Hx Anesthesia Reactions: No Hx Malignant Hyperthermia: No Meds Allergies/Adverse Reactions: Allergies Allergy/AdvReac Type Severity Reaction Status Date / Time iodine Allergy SHORTNESS Verified 03/22/16 07:22 OF BREATH Sulfa (Sulfonamide Allergy RASH Verified 03/22/16 07:25 Antibiotics) Physical Exam - Constitutional Appears: No Acute Distress (obese) - Head Exam Head Exam: ATRAUMATIC, NORMOCEPHALIC - Eye Exam Eye Exam: EOMI - ENT Exam ENT Exam: Mucous Membranes Moist - Neck Exam Neck exam: Positive for: Full Rom - Respiratory Exam Respiratory Exam: NORMAL BREATHING PATTERN. absent: Rhonchi, Wheezes - Cardiovascular Exam Cardiovascular Exam: +S1, +S2. absent: Gallop - GI/Abdominal Exam GI & Abdominal Exam: Normal Bowel Sounds (obese), Soft - Extremities Exam Extremities exam: Negative for: calf tenderness, pedal edema - Back Exam Back exam: absent: CVA tenderness (L), CVA tenderness (R) - Neurological Exam Neurological exam: Alert, CN II-XII Intact, Oriented x3 - Psychiatric Exam Psychiatric exam: Normal Affect, Normal Mood - Skin Skin Exam: Dry, Normal Color, Warm Results - Vital Signs Recent Vital Signs: Last Vital Signs Temp 98.3 F 08/04/18 12:02 Pulse 76 08/04/18 13:06 Resp 15 08/04/18 13:06 BP 132/81 08/04/18 13:06 Pulse Ox 96 08/04/18 14:24 - Labs Result Diagrams: 08/04/18 12:45 08/04/18 12:45 Labs: Laboratory Results - last 24 hr 08/04/18 08/04/18 08/04/18 12:45 12:45 12:45 WBC 7.9 RBC 5.27 H Hgb 13.1 Hct 41.1 MCV 78.0 L MCH 24.8 L MCHC 31.8 L RDW 18.3 H Plt Count 290 MPV 8.2 Neut % (Auto) 77.1 H Lymph % (Auto) 13.1 L Hart % (Auto) 6.9 Eos % (Auto) 2.1 Baso % (Auto) 0.8 Neut # (Auto) 6.1 Lymph # (Auto) 1.0 Hart # (Auto) 0.5 Eos # (Auto) 0.2 Baso # (Auto) 0.1 PT 12.6 INR 1.1 APTT 27.3 Sodium 140 Potassium 3.8 Chloride 99 Carbon Dioxide 28 Anion Gap 17 BUN 22 H Creatinine 0.9 Est GFR ( Amer) > 60 Est GFR (Non-Af Amer) > 60 POC Glucose (mg/dL) Random Glucose 127 H Calcium 9.5 Total Bilirubin 0.8 AST 27 ALT 28 Alkaline Phosphatase 89 Troponin I < 0.0120 Total Protein 6.8 Albumin 3.9 Globulin 3.0 Albumin/Globulin Ratio 1.3 08/04/18 13:34 WBC RBC Hgb Hct MCV MCH MCHC RDW Plt Count MPV Neut % (Auto) Lymph % (Auto) Hart % (Auto) Eos % (Auto) Baso % (Auto) Neut # (Auto) Lymph # (Auto) Hart # (Auto) Eos # (Auto) Baso # (Auto) PT INR APTT Sodium Potassium Chloride Carbon Dioxide Anion Gap BUN Creatinine Est GFR ( Amer) Est GFR (Non-Af Amer) POC Glucose (mg/dL) 109 Random Glucose Calcium Total Bilirubin AST ALT Alkaline Phosphatase Troponin I Total Protein Albumin Globulin Albumin/Globulin Ratio Assessment & Plan - Assessment and Plan (Free Text) Assessment: 72 yr old F admitted for syncopal episode s/p chest pain. Patient has significant PMHx including Hypertension, Atrial fibrillation, IDDM type 2, Hypothyroidism, Asthma, Obstructive Sleep Apnea and arthritis. Patient is hemodynamically stable at this time. 1. Acute Coronary Syndrome -acute chest pain, improved, stable -EKG: Atrial fibrillation at 67 bpm, no acute ST-T changes -troponin negative x 1 -admit to [facility], respiratory assistant -f/u serial troponins 2. Syncope -acute -CT head: No intracranial hemorrhage. Very limited age-related neuro degenerative findings without acute CT changes -CBC, CMP and coags within normal limits -f/u echo, vit B12, TSH, carotid doppler 3. Atrial fibrillation -chronic, rate controlled -continue home meds (Metoprolol succinate 100mg PO QD, -Start Eliquis 5mg PO daily 4. Hypertension -chronic, uncontrolled -continue home medications (Losartan 100mg PO QD) -monitor BP -adjust medications pending values 5. Hypothyroidism -chronic -f/u TSH -continue Levothyroxine 150 mcg PO QD 6. IDDM Type 2 -chronic, uncontrolled -f/u HbA1c -blood glucose ACHS -Insulin Lispro 75/25 18 units SC BRK, Insulin Lispro 75/25 15 units SC DIN -hypoglycemia protocol in place 7. Obstructive Sleep Apnea -chronic, stable -patient non adherent to BIPAP, refuses 8. DVT prophylaxis -SCD's for now -patient started on Eliquis 5mg PO QD - Date & Time Date: 08/04/18 Time: 15:10
[2018-08-04] MEDS ORDERED: Glucagon Recombinant 1 mg Inj IM PRN (16:04)
[2018-08-04] MEDS ORDERED: Dextrose 50% SYRINGE Inj (50 ml) IV PRN (16:04)
[2018-08-04] MEDS ORDERED: Insulin Lispro Mix 75/25 100 units/ml (HumaLog) 10ml SC SCH (17:00)
--- NOTE | 2018-08-04 17:49 | RAD ---
Date of service: 08/04/2018 HISTORY: chest pain COMPARISON: Frontal chest 03/15/2017. FINDINGS: LUNGS: No active pulmonary disease. PLEURA: No significant pleural effusion identified, no pneumothorax apparent. CARDIOVASCULAR: No aortic atherosclerotic calcification present. Stable cardiomegaly. No pulmonary vascular congestion. OSSEOUS STRUCTURES: No significant abnormalities. VISUALIZED UPPER ABDOMEN: Normal. OTHER FINDINGS: None. IMPRESSION: Cardiomegaly. No acute cardiopulmonary disease appreciable.
[2018-08-04] MEDS ORDERED: Pneumococcal 23-Valent Vaccine IM ONE (20:00)
--- NOTE | 2018-08-04 22:29 | CARD ---
APPROVED REPORT Date of service: 08/04/2018 EKG Measurement Heart [id number] <Conclusion> Atrial fibrillation Minimal voltage criteria for LVH, may be normal variant Abnormal ECG
[2018-08-05] MEDS ORDERED: Levothyroxine 150 MCG TAB PO SCH (06:30)
[2018-08-05 06:31] LABS: HDL CHOLESTEROL 39 MG/DL (30-70)
[2018-08-05 06:42] LABS: LDL CHOLESTEROL 87 mg/dL (0-129)
[2018-08-05] MEDS ORDERED: Insulin Lispro Mix 75/25 100 units/ml (HumaLog) 10ml SC SCH (08:00)
[2018-08-05 08:25] VITALS: RESP 20
[2018-08-05] MEDS ORDERED: Enoxaparin 40 mg Syringe SC SCH (09:00)
[2018-08-05] MEDS ORDERED: RANITIDINE HCL 300 MG PO SCH (09:00)
--- NOTE | 2018-08-05 10:56 | CARD ---
APPROVED REPORT Date of service: 08/05/2018 EXAM: Two-dimensional and M-mode echocardiogram with Doppler and color Doppler. Other Information Quality : GoodRhythm : Atrial Fibrillation INDICATION Pericarditis Syncope 2D DIMENSIONS IVSd1.17 (0.7-1.1cm)LVDd3.69 (3.9-5.9cm) LVOT Diameter1.84 (1.8-2.4cm)PWd1.33 (0.7-1.1cm) IVSs1.50 (0.8-1.2cm)LVDs3.39 (2.5-4.0cm) FS (%) 8.0 %PWs1.53 (0.8-1.2cm) M-Mode DIMENSIONS Left Atrium (MM)5.28 (2.5-4.0cm)IVSd1.22 (0.7-1.1cm) Aortic Root2.59 (2.2-3.7cm)LVDd4.97 (4.0-5.6cm) Aortic Cusp Exc.1.88 (1.5-2.0cm)PWd1.38 (0.7-1.1cm) IVSs2.03 cmFS (%) 42 % LVDs2.91 (2.0-3.8cm)PWs1.91 cm Aortic Valve AoV Peak Xgzvwcpq617.7cm/sAoV VTI19.1cmAO Peak GR.5mmHg LVOT Peak Odtudkfx50.5cm/sLVOT VTI13.33cmAO Mean GR.3mmHg SONIA (VMAX)0.72ec6DRW (VTI)0.95cm2 Mitral Valve E/A ratio0.0 TDI E/Lateral E'0.0E/Medial E'0.0 Tricuspid Valve TR Peak [id number]/sRAP [id number] Peak Gr.35mmHg [id number] LEFT VENTRICLE The left ventricle is normal size. There is borderline concentric left ventricular hypertrophy. The left ventricular systolic function is normal. The estimated ejection fraction is 55-60% No regional wall motion abnormalities noted.. The left ventricular diastolic function cannot be assessed due to underlying atrial fibrillation. No left ventricle thrombus noted on this study. There is no ventricular septal defect visualized. There is no left ventricular aneurysm. There is no mass noted in the left ventricle. RIGHT VENTRICLE The right ventricle is normal size. There is normal right ventricular wall thickness. The right ventricular systolic function is normal. ATRIA The left atrium is moderately dilated. The right atrium size is normal. The interatrial septum has possible PFO. AORTIC VALVE The aortic valve is normal in structure. No aortic regurgitation is present. There is no aortic valvular stenosis. There is no aortic valvular vegetation. MITRAL VALVE The mitral valve is normal in structure. There is no evidence of mitral valve prolapse. There is no mitral valve stenosis. There is no mitral valve regurgitation noted. TRICUSPID VALVE The tricuspid valve is normal in structure. There is mild tricuspid valve regurgitation noted. RVSP is calculated at 42 mm Hg. There is no tricuspid valve prolapse or vegetation. There is no tricuspid valve stenosis. PULMONIC VALVE The pulmonary valve is normal in structure. There is no pulmonic valvular regurgitation. There is no pulmonic valvular stenosis. GREAT VESSELS The aortic root is normal in size. The ascending aorta is normal in size. The pulmonary artery is normal. The IVC is normal in size and collapses >50% with inspiration. PERICARDIAL EFFUSION There is no pericardial effusion. There is no pleural effusion. <Conclusion> There is borderline concentric left ventricular hypertrophy. The estimated ejection fraction is 55-60% The left ventricular diastolic function cannot be assessed due to underlying atrial fibrillation. The left atrium is moderately dilated. There is mild tricuspid valve regurgitation noted. RVSP is calculated at 42 mm Hg.
[2018-08-05 12:41] VITALS: BP 134/96; PULSE 71; TEMP 97.8; O2SAT 99
--- NOTE | 2018-08-05 12:44 | US ---
Date of service: 08/05/2018 PROCEDURE: Duplex ultrasound of the carotid and vertebral arteries. HISTORY: Syncopal episode COMPARISON: None available. TECHNIQUE: Grayscale and duplex Doppler evaluation of the cervical carotid and vertebral arteries were performed. The common carotid, carotid bifurcations and cervical ICA and proximal ECA were evaluated. The vertebral arteries were evaluated for gross patency and direction. FINDINGS: There are mild calcified atherosclerotic plaques in the carotid bulbs. RIGHT CAROTID ARTERIES: Common Carotid Artery: Normal. Maximal flow velocity of 74.0 cm/s. Carotid Bifurcation: Normal. Internal Carotid Artery:Normal. Maximal flow velocity of 73.2 cm/s. External Carotid Artery (proximal branches): Normal. Maximal flow velocity of 98.4 cm/s. ICA/CCA Ratio: 1.9 LEFT CAROTID ARTERIES: Common Carotid Artery: Normal. Maximal flow velocity of 69.0 cm/s. Carotid Bifurcation: Normal. Internal Carotid Artery:Normal. Maximal flow velocity of 70.5 cm/s. External Carotid Artery (proximal branches): Normal. Maximal flow velocity of 88.6 cm/s. ICA/CCA Ratio: 1.5 VERTEBRAL ARTERIES: Right Vertebral Artery: Patent. Antegrade flow. Left Vertebral Artery: Patent. Antegrade flow. OTHER FINDINGS: No atherosclerotic calcification present IMPRESSION: No evidence of hemodynamically significant stenosis by peak systolic velocity criteria. Patent vertebral arteries with antegrade flow.
--- NOTE | 2018-08-05 13:23 | CP.PCM.DIS ---
Provider - Provider Date of Admission: 08/04/18 14:22 Attending physician: Luann Villalobos MD Consults: 08/04/18 18:38 Social Work Referral Routine Comment: discharge planning Physician Instructions: Reason For Exam: discharge planning Time Spent in preparation of Discharge (in minutes): 25 Diagnosis - Discharge Diagnosis (1) Syncope and collapse Status: Acute Hospital Course - Lab Results Lab Results: Most Recent Lab Values WBC 7.9 K/uL (4.8-10.8) 08/04/18 12:45 RBC 5.27 Mil/uL (3.80-5.20) H 08/04/18 12:45 Hgb 13.1 g/dL (12.0-16.0) 08/04/18 12:45 Hct 41.1 % (34.0-47.0) 08/04/18 12:45 MCV 78.0 fl (81.0-99.0) L 08/04/18 12:45 MCH 24.8 pg (27.0-31.0) L 08/04/18 12:45 MCHC 31.8 g/dL (33.0-37.0) L 08/04/18 12:45 RDW 18.3 % (11.5-14.5) H 08/04/18 12:45 Plt Count 290 K/uL (130-400) 08/04/18 12:45 MPV 8.2 fl (7.2-11.7) 08/04/18 12:45 Neut % (Auto) 77.1 % (50.0-75.0) H 08/04/18 12:45 Lymph % (Auto) 13.1 % (20.0-40.0) L 08/04/18 12:45 Will % (Auto) 6.9 % (0.0-10.0) 08/04/18 12:45 Eos % (Auto) 2.1 % (0.0-4.0) 08/04/18 12:45 Baso % (Auto) 0.8 % (0.0-2.0) 08/04/18 12:45 Neut # (Auto) 6.1 K/uL (1.8-7.0) 08/04/18 12:45 Lymph # (Auto) 1.0 K/uL (1.0-4.3) 08/04/18 12:45 Will # (Auto) 0.5 K/uL (0.0-0.8) 08/04/18 12:45 Eos # (Auto) 0.2 K/uL (0.0-0.7) 08/04/18 12:45 Baso # (Auto) 0.1 K/uL (0.0-0.2) 08/04/18 12:45 PT 12.6 Seconds (9.8-13.1) 08/04/18 12:45 INR 1.1 08/04/18 12:45 APTT 27.3 Seconds (25.6-37.1) 08/04/18 12:45 Sodium 140 mmol/l (132-148) 08/04/18 12:45 Potassium 3.8 MMOL/L (3.6-5.0) 08/04/18 12:45 Chloride 99 mmol/L (98-107) 08/04/18 12:45 Carbon Dioxide 28 mmol/L (22-30) 08/04/18 12:45 Anion Gap 17 (10-20) 08/04/18 12:45 BUN 22 mg/dl (7-17) H 08/04/18 12:45 Creatinine 0.9 mg/dl (0.7-1.2) 08/04/18 12:45 Est GFR ( Amer) > 60 08/04/18 12:45 Est GFR (Non-Af Amer) > 60 08/04/18 12:45 POC Glucose (mg/dL) 188 mg/dL (65-110) H 08/05/18 11:07 Random Glucose 127 mg/dL (65-105) H 08/04/18 12:45 Hemoglobin A1c 7.0 % (4.2-6.5) H 08/05/18 04:30 Calcium 9.5 mg/dL (8.4-10.2) 08/04/18 12:45 Total Bilirubin 0.8 mg/dl (0.2-1.3) 08/04/18 12:45 AST 27 U/L (14-36) 08/04/18 12:45 ALT 28 U/L (9-52) 08/04/18 12:45 Alkaline Phosphatase 89 U/L (38-126) 08/04/18 12:45 Troponin I < 0.0120 ng/mL (0.00-0.120) 08/05/18 04:30 Total Protein 6.8 G/DL (6.3-8.2) 08/04/18 12:45 Albumin 3.9 g/dL (3.5-5.0) 08/04/18 12:45 Globulin 3.0 gm/dL (2.2-3.9) 08/04/18 12:45 Albumin/Globulin Ratio 1.3 (1.0-2.1) 08/04/18 12:45 Triglycerides 112 mg/DL (0-149) 08/05/18 04:30 Cholesterol 137 mg/dL (0-199) 08/05/18 04:30 LDL Cholesterol Direct 87 mg/dL (0-129) 08/05/18 04:30 HDL Cholesterol 39 MG/DL (30-70) 08/05/18 04:30 Vitamin B12 260 pg/mL (239-931) 08/05/18 04:30 TSH 3rd Generation 1.63 mIU/ML (0.46-4.68) 08/05/18 04:30 - Hospital Course Hospital Course: 72-year-old female with PMH of Hypertension, Atrial fibrillation, IDDM type 2, Hypothyroidism, Asthma, Obstructive Sleep Apnea and arthritis was brought in by ambulance for a syncopal episode while at [employer]. She admitted to chest discomfort and sweating before passing out but cannot recall duration or any other info. She denies loss of bowel or bladder function, head trauma, and low blood sugar prior to episode. Daughter and granddaughter bedside and noted that the patient is noncompliant with her home medications and BiPAP machine and also noticed her blood pressure was higher than normal the last few days (200's systolic). In ED she was found to be hypertensive (170's/90's) in Afib (rate controlled) and she was admitted to telemetry for further cardaic monitoring. Cardiac workup WNL - EKG: Atrial fibrillation at 67 bpm, no acute ST-T changes, echo: EF 55-60%, Carotid doppler: no evidence of hemodynamically significant stenosis by peak systolic velocity criteria, TSH 1.63, Troponins negative x3. Remainder of workup WNL - CT head: No intracranial hemorrhage. Very limited age- related neuro degenerative findings without acute CT changes; CBC, CMP and coags within normal limits. Home medications were resumed and eliquist for secondary stroke prevention. 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 Discharge Exam - Head Exam Head Exam: ATRAUMATIC, NORMOCEPHALIC - Eye Exam Eye Exam: Normal appearance - ENT Exam ENT Exam: Mucous Membranes Moist - Respiratory Exam Respiratory Exam: NORMAL BREATHING PATTERN, UNREMARKABLE - Cardiovascular Exam Cardiovascular Exam: REGULAR RHYTHM - GI/Abdominal Exam GI & Abdominal Exam: Soft. absent: Tenderness - Extremities Exam Extremities exam: normal inspection - Back Exam Back exam: NORMAL INSPECTION - Neurological Exam Neurological exam: Alert, Normal Gait, Oriented x3 - Psychiatric Exam Psychiatric exam: Normal Affect, Normal Mood - Skin Skin Exam: Dry, Intact, Normal Color, Warm Discharge Plan - Discharge Medications Prescriptions: Apixaban [Eliquis] 5 mg PO DAILY #30 tab Hydroxyzine Pamoate [Vistaril] 25 mg PO DAILY #30 capsule Insulin Aspart Prot/Insuln Asp [Novolog Mix 70-30 Vial] 18 unit SC BRK #1 vial Insulin Aspart Prot/Insuln Asp [Novolog Mix 70-30 Vial] 15 unit SC DIN #1 vial Levothyroxine Sodium [Levothroid] 150 mcg PO DAILY #30 tab Losartan Potassium [Cozaar] 100 mg PO DAILY #30 tablet Metoprolol Tartrate [Lopressor] 100 mg PO DAILY #30 tab Ranitidine HCl [Zantac] 300 mg PO DAILY #30 tablet - Follow Up Plan Condition: FAIR Disposition: HOME/ ROUTINE Instructions: Chest Pain (DC), Syncope (Fainting) (DC) Additional Instructions: follow up with and in 1 week Referrals: Rashid Capellan [Staff Provider] - Joby Pearson MD [Staff Provider] -
== END 2018-08-05 13:30 | disposition home or self-care (01) ==
LOC: H.ER 11:55 → H.ERHOLD 14:22 → H.TEL 17:48
PROVIDERS: ADMIT Hospitalist; ATTEND Hospitalist
DX: R55 Syncope and collapse (principal); Z23 Encounter for immunization; G47.33 Obstructive sleep apnea (adult) (pediatric); E03.9 Hypothyroidism, unspecified; I10 Essential (primary) hypertension; Z79.4 Long term (current) use of insulin; Z79.890 Hormone replacement therapy; Z91.14 Patient's other noncompliance with medication regimen; E11.65 Type 2 diabetes mellitus with hyperglycemia; J45.909 Unspecified asthma, uncomplicated; I48.2 Chronic atrial fibrillation; M19.90 Unspecified osteoarthritis, unspecified site; Z88.2 Allergy status to sulfonamides; Z91.041 Radiographic dye allergy status
CPT/HCPCS: 36415; 70450; 71045; 80053; 80061; 82607; 82948; 83036; 84443; 84484; 85025; 85610; 85730; 90732; 93005; 93306; 93880; 96360; 99285; G0009; G0378; J7040; Q0177